=== PATIENT | female | born 1955 | race Caucasian/White ===

== ENCOUNTER 2017-01-13 14:26 | Emergency (ER) | payer OTHER ==
--- NOTE | ~2017-01-13 | CT16 ---
[facility] A Service of [facility] RADIOLOGY TEXT RESULTS PATIENT: TAURUS TEJADA LOCATION: SED : 53 UNIT #: [id number] AGE: [address]: Giovanni Ashton MD SEX: F ORDER DR: [id number] [place] [id number] E MR#: [id number] Acc #: [id number] NAME: TAURUS TEJADA. : 1955 SEX: F STUDY DATE/TIME: 01/13/2017 13:42 UNIT: SED ROOM: STUDY DESCRIPTION: CT Angio Chest for PE Attending Physician: Giovanni Ashton M.D. Ordering Physician: Giovanni Ashton M.D. Primary Care Physician: Primary Care Physician No MEDICAL IMAGING REPORT This report is preliminary unless electronic signature is present. EXAM CTA chest PE protocol INDICATION Shortness of air since this morning. History of previous pulmonary embolus. PROCEDURE Contrast-enhanced CTA of the chest with attention on opacification of pulmonary arteries. Coronal 3-D MIP and sagittal reformatted images reconstructed and submitted. 80 mL of Isovue-370. COMPARISON 06/04/[address] exam was performed with one or more of the following radiation dose reduction techniques: automatic exposure control, adjustment of mA and/or kV according to patient size, and iterative reconstruction. FINDINGS There is large acute pulmonary embolus burden extending to all lobes both on the right and the left. There is no saddle component. No evidence for right heart strain. No adenopathy. Cholelithiasis. Possible hepatic steatosis. No aggressive appearing bone lesion. IMPRESSION 1. Bilateral acute pulmonary embolus extending to all lobes. No saddle component or significant component of right heart strain. 2. Not mentioned above, the lungs are clear. 1. Dictated by... [facility] A Service [facility] RADIOLOGY TEXT RESULTS PATIENT: TAURUS TEJADA LOCATION: SED : 53 UNIT #: [id number] AGE: [address]: Giovanni Ashton MD SEX: F ORDER DR: Oswald Cortez M.D. THIS IS AN ELECTRONICALLY VERIFIED REPORT Oswald Cortez M.D. at 01/13/2017 4:51 PM Katarina TD: 01/13/2017 14:55 JOB #: [id number] MEDICAL IMAGING REPORT Page 1 of 1
[2017-01-13 13:21] LABS: BASOPHIL# 0.1 X10e3 (0-0.3); BASOPHIL% 0.8 % (0-2.5); EOSINOPHIL# 0.5 X10e3 (0-0.7); EOSINOPHIL% 6.9 % (0.0-7.0); HEMATOCRIT 39.9 % (35.0-45.0); HEMOGLOBIN 13.4 gm/dL (12.0-16.0); LYMPHOCYTE# 2.6 X10e3 (1.0-3.5); LYMPHOCYTE% 35.6 % (17.0-45.0); MEAN CELL VOLUME 89.7 FL (83-96); MEAN CORPUSCULAR HEMOGLOBIN 30.1 PG (28-34); MEAN CORPUSCULAR HGB CONC 33.5 g/dL (30-36); MEAN PLATELET VOLUME 7.5 FL (6.5-11.5); MONOCYTE# 0.6 X10e3 (0-1.0); MONOCYTE% 7.5 % (3.0-12.0); NEUTROPHIL# 3.6 X10e3 (1.5-7.1); NEUTROPHIL% 49.2 % (40-75); PLATELET COUNT 206 X10e3 (140-420); RED BLOOD COUNT 4.45 X10e (3.90-5.30); RED CELL DISTRIBUTION WIDTH 13.6 % (11.0-15.5); WHITE BLOOD COUNT 7.3 X10e3 (4.0-10.5)
[2017-01-13 13:24] LABS: DIFF IND NO
[2017-01-13 13:35] LABS: POC - CREATININE 0.71 mg/dL (0.44-1.03); POC - GFR >60.0 mL/min (>60)
[2017-01-13 13:41] LABS: POC - TROPONIN <0.05 ng/mL (<=0.05)
[2017-01-13 13:43] LABS: PROTHROMBIN TIME (PATIENT) 11.8 SECONDS (9.5-12.4)
[2017-01-13 13:51] LABS: ALBUMIN SERUM 4.2 g/dL (3.5-5.0); BILIRUBIN,TOTAL 0.7 mg/dL (0.2-2.0); CALCIUM SERUM 9.6 mg/dL (8.4-10.2); GLOM FILT RATE Estimated 60.4 mL/min (>60); POTASSIUM 3.3 mmol/L (3.5-5.1); PROTEIN TOTAL SERUM 7.4 g/dL (6.0-8.3)
[~2017-01-13 14:26] MED LIST: AMBIEN10 MG PO; ASPIRIN PO; ATARAX PO; AUGMENTIN; CALCIUM WITH VITD; CELEXA PO; CELEXA20 MG PO; COUMADIN; CRESTOR; CRESTOR PO; CRESTOR10 MG PO; DARVOCET-N 1001 TAB; DICLOFENAC PO; DURAGESIC75 MCG EXT; FLEXERIL; FLEXERIL10 MG PO; HCTZ; HYDROCODON-ACE1 EAC7 PO; HYDROCODONE-APA1 T54 PO; KEFLEX250 M2 PO; LAXATIVE; LISINOPRIL10 MG PO; LISINOPRIL20 MG PO; MORPHINE PAIN PUMP; MORPHINE PAIN PUMP INJ; NORCO1 TAB 10/3 PO; OXYCODONE HCL10 MG PO; OXYCODONE HCL5 MG PO; PRINIVIL10 MG PO; STOOL SOFTENER1 EAC1 PO; STOOL SOFTNER; TEGRETOL PO; TRAZODONE; VIIBRYD20 MG PO; VIIBRYD40 MG PO; VITAMIN D-32000 UNI1 PO; ZESTRIL10 M2 PO; ZOLOFT; [UNRECOGNIZED DRUG - REMARK]
[2017-01-13 20:14] LABS: INR 1.2; PROTHROMBIN TIME (PATIENT) 13.4 SECONDS (9.5-12.4)
[2017-01-13 20:22] LABS: PARTIAL THROMBOPLASTIN TIME 90.4 SECONDS (25.6-38.1)
[2017-02-01] MEDS ORDERED: BELSOMRA10 MG PO (13:47)
[2017-02-01] MEDS ORDERED: HYDROCODON-ACE1 EAC7 PO (13:51)
[2017-02-01] MEDS ORDERED: WOMENS STOOL S100 MG PO (13:53)
[2017-02-01] MEDS ORDERED: FLEXERIL10 MG PO (13:55)
[2017-02-01] MEDS ORDERED: ZESTRIL40 MG PO (13:56)
[2017-02-01] MEDS ORDERED: VIIBRYD40 MG PO (13:58)
[2017-02-01] MEDS ORDERED: ALPRAZOLAM PO (13:59)
[2017-02-01] MEDS ORDERED: ELIQUIS5 MG PO (14:00)
[2017-02-01] MEDS ORDERED: VESICARE PO (14:00)
[2017-02-01] MEDS ORDERED: LIPO-FLAVONOID PO (14:01)
[2017-03-21] MEDS ORDERED: LO-DOSE ASPIRIN81 M1 PO (10:02)
[2017-06-20] MEDS ORDERED: HYDROCODON-ACE1 EAC7 PO (08:48)
[2017-06-20] MEDS ORDERED: MILK OF MAGNESIA (08:52)
== END 2017-01-13 20:35 | disposition hospice, home (50) ==
LOC: SED 14:26
PROVIDERS: Emergency Medicine
DX: I26.99 Other pulmonary embolism without acute cor pulmonale (principal); J96.90 Respiratory failure, unspecified, unspecified whether with hypoxia or hypercapnia; E78.5 Hyperlipidemia, unspecified; I10 Essential (primary) hypertension; J44.9 Chronic obstructive pulmonary disease, unspecified; Z87.891 Personal history of nicotine dependence
CPT/HCPCS: 36415; 71275; 80053; 82553; 82565; 83874; 83880; 84484; 85025; 85610; 85730; 93005; 94640; 96361; 96372; 96374; 99291; J1644; J1650; J2060; Q9967

== ENCOUNTER → 2017-02-02 | Day surgery (SDC) | payer OTHER ==
[~2017-02-02] MED LIST changes: +ALPRAZOLAM PO; +BELSOMRA10 MG PO; +ELIQUIS5 MG PO; +LIPO-FLAVONOID PO; +LO-DOSE ASPIRIN81 M1 PO; +MILK OF MAGNESIA; +VESICARE PO; +WOMENS STOOL S100 MG PO; +ZESTRIL40 MG PO
--- NOTE | ~2017-02-02 | OR ---
Unit #: [id number] #: [id number] Patient: TAURUS TEJADA [id number] [address] [place], [place] [address] [id number] O MR#: [id number] NAME: TAURUS TEJADA ROOM: Date of Procedure: 02/02/2017 Admission Date: 02/02/2017 Surgeon: Simon العراقي M.D. : 1955 Attending Physician: Simon العراقي M.D. Referring Physician: Simon العراقي M.D. Primary Care Physician: Ck Kinney M.D. OPERATIVE REPORT PREOPERATIVE DIAGNOSES Lumbar disk herniation, lumbar fusion, back pain, radiculopathy. POSTOPERATIVE DIAGNOSES Lumbar disk herniation, lumbar fusion, back pain, radiculopathy. PROCEDURE PERFORMED Lumbar epidural steroid injection with intravenous sedation and fluoroscopic guidance for needle localization. INDICATIONS FOR PROCEDURE The patient is a 61-year-old female with significant worsening back and right lower extremity pain after some lifting. The patient has fused from L3 through L4. She has right-sided disk herniations on workup at the right L1-L2 and L2-L3 levels causing nerve root impingement. She was not able to do therapy due to the amount of the pain she was having. Plan is a trial of epidural steroids trying to settle down these levels with nerve root irritation. DESCRIPTION OF PROCEDURE The patient was placed in a seated position. Standard monitors were applied. 2 mg of Versed were given for sedation and anxiolysis, which were adequate. Vital signs remained stable. Sterile prep and drape then of the lumbar area was performed. The skin then at the L1-L2 level was localized with 1% lidocaine. An 18-gauge Wheretogettead needle was then advanced via loss of resistance technique and fluoroscopic guidance in toward the epidural space. The patient did not complain of pain or paresthesia during needle advancement. After confirming proper positioning with fluoroscopy and radiographic contrast, 80 mg of Depo-Medrol and 4 mL of 0.125% bupivacaine were deposited. The patient tolerated the procedure otherwise well and was discharged to the recovery room in stable condition. Dictated by... Lambert Stearns/mukul TD: 02/03/2017 00:15 JOB #: [id number] Unit #: [id number] #: [id number] Patient: TAURUS TEJADA OPERATIVE REPORT Page 1 of 1 X Simon العراقي MD X PROCEDURE OPERATIVE NOTE
== END | disposition home or self-care (01) ==
LOC: CCSC 09:45
DX: M51.16 Intervertebral disc disorders with radiculopathy, lumbar region (principal); Z98.1 Arthrodesis status
CPT/HCPCS: J1040; J2250

== ENCOUNTER → 2017-03-21 | Day surgery (SDC) | payer OTHER ==
--- NOTE | ~2017-03-21 | OR ---
Unit #: [id number] #: [id number] Patient: TAURUS TEJADA [id number] [address] [place], [place] [address] [id number] O MR#: [id number] NAME: TAURUS TEJADA. ROOM: Date of Procedure: 03/21/2017 Admission Date: 03/21/2017 Surgeon: Simon العراقي M.D. : 1955 Attending Physician: Simon العراقي M.D. Primary Care Physician: Ck Kinney M.D. OPERATIVE REPORT PREOPERATIVE DIAGNOSES Herniated nucleus pulposus, radiculopathy, postlumbar fusion. POSTOPERATIVE DIAGNOSES Herniated nucleus pulposus, radiculopathy, postlumbar fusion. PROCEDURE PERFORMED Transforaminal epidural steroid injection x2 levels with intravenous sedation and fluoroscopic guidance for needle localization. INDICATIONS FOR PROCEDURE The patient is a 61-year-old female, status post L3 through L5 fusion with worsening right lower extremity and back pain following lifting. The patient did not settle with conservative management. Trial of translaminar epidural did not give her significant improvement. Repeat workup demonstrated a new right L1-L2 disk with right L1 nerve root impingement. At the L2-L3 level, there was also a right-sided bulge contacting the L2 and L3 nerve roots. Based on her pathology, symptomatology, and failed to respond to translaminar injection, plan is for trial of transforaminal to the right at these 2 levels. Risks and benefits of all have been reviewed. DESCRIPTION OF PROCEDURE The patient was placed in a prone position. Standard monitors were applied. 2 mg of Versed were given for sedation and anxiolysis, which were adequate. Vital signs remained stable. Sterile prep and drape then of the thoracolumbar area was performed. The skin then to the right of midline at the L1-L2 and L2-L3 level was localized with 1% lidocaine. At each of these levels, a long 22-gauge Quincke point spinal needle was advanced with biplanar fluoroscopy to bring the needle tip within the edge of the respective L1-L2 and L2-L3 neural foramina. At both of these levels, the patient had a paresthesia, which quickly abated upon slightly retracting the needle. After confirming proper positioning with biplanar fluoroscopy and radiographic contrast, a dose of 1.5 mL of a mixture of 80 mg Depo-Medrol and 2 mL of 0.25% bupivacaine were deposited at each of the neural foramina. The patient had mild reproduction of pain during the injection. She otherwise tolerated the procedure well and was discharged to recovery room in stable condition. She will be reassessed at the office. Unit #: [id number] #: [id number] Patient: TAURUS TEJADA Dictated by... Lambert Stearns/mukul TD: 03/21/2017 23:10 JOB #: [id number] CC: Socallie/invision Please Delete OPERATIVE REPORT Page 1 of 1 X Simon العراقي MD X PROCEDURE OPERATIVE NOTE
== END | disposition home or self-care (01) ==
LOC: CCSC 09:12
DX: M51.16 Intervertebral disc disorders with radiculopathy, lumbar region (principal); Z88.6 Allergy status to analgesic agent; Z88.8 Allergy status to other drugs, medicaments and biological substances; Z79.01 Long term (current) use of anticoagulants; Z79.891 Long term (current) use of opiate analgesic; Z79.899 Other long term (current) drug therapy; Z98.1 Arthrodesis status
CPT/HCPCS: J1040; J2250

== ENCOUNTER 2017-05-23 23:43 | Emergency (ER) | payer OTHER ==
[~2017-05-23] VITALS: Ht 162.6 cm; Wt 92.5 kg
[~2017-05-23 23:43] MED LIST changes: -MILK OF MAGNESIA
[2017-06-20] MEDS ORDERED: HYDROCODON-ACE1 EAC7 PO (08:48)
[2017-06-20] MEDS ORDERED: MILK OF MAGNESIA (08:52)
== END 2017-05-24 01:37 | disposition home or self-care (01) ==
LOC: SED 23:43
DX: I87.8 Other specified disorders of veins (principal); K08.89 Other specified disorders of teeth and supporting structures; E78.5 Hyperlipidemia, unspecified; I10 Essential (primary) hypertension; Z88.5 Allergy status to narcotic agent; Z88.8 Allergy status to other drugs, medicaments and biological substances; Z79.899 Other long term (current) drug therapy
CPT/HCPCS: 99282

== ENCOUNTER 2017-06-21 01:58 | Emergency (ER) | payer OTHER ==
[~2017-06-21] VITALS: Ht 161.3 cm; Wt 92.5 kg
--- NOTE | ~2017-06-21 | CR63 ---
[facility] A Service of [facility] RADIOLOGY TEXT RESULTS PATIENT: TAURUS TEJADA LOCATION: [facility] : 53 UNIT #: [id number] AGE: [address]: Clifford Grossman MD SEX: F ORDER DR: [id number] [facility] [address] [place], [place] [address] [id number] E MR#: [id number] Acc #: [id number] NAME: TAURUS TEJADA : 1955 SEX: F STUDY DATE/TIME: 06/21/2017 3:04 UNIT: [facility] ROOM: STUDY DESCRIPTION: CR Chest 2 View Attending Physician: Clifford Grossman M.D. Ordering Physician: Richie Lu D.O. Primary Care Physician: Ck Kinney M.D. MEDICAL IMAGING REPORT This report is preliminary unless electronic signature is present EXAM Two-view chest INDICATION Chest and bilateral arm and shoulder pain today. PROCEDURE Frontal and lateral views of the chest. COMPARISON 09/03/2014 FINDINGS Heart size normal. Lungs clear. No pleural fluid or pneumothorax. IMPRESSION No active process. Dictated by... Oswald Cortez M.D. THIS IS AN ELECTRONICALLY VERIFIED REPORT Oswald Cortez M.D. at 06/22/2017 9:56 PM DARREN/brant TD: 06/21/2017 11:09 JOB #: [id number] MEDICAL IMAGING REPORT Page 1 of 1 COPY
--- NOTE | ~2017-06-21 | US139 ---
[facility] A Service of [facility] RADIOLOGY TEXT RESULTS PATIENT: TAURUS TEJADA LOCATION: [facility] : 53 UNIT #: [id number] AGE: [address]: Clifford Grossman MD SEX: F ORDER DR: [id number] [facility] [address] [place], [place] [address] [id number] E MR#: [id number] Acc #: [id number] NAME: TAURUS TEJADA. : 1955 SEX: F STUDY DATE/TIME: 06/21/2017 7:27 UNIT: [facility] ROOM: STUDY DESCRIPTION: US UE Veins Complete Eric Stdy Attending Physician: Clifford Grossman M.D. Ordering Physician: Richie Lu D.O. Primary Care Physician: Ck Kinney M.D. MEDICAL IMAGING REPORT This report is preliminary unless electronic signature is present EXAM Bilateral upper extremity venous duplex 06/21/2017 HISTORY Bilateral upper extremity pain for 2 days and history of previous DVT December 2016. FINDINGS Ludwig-scale images of the upper extremities were obtained as well as Doppler waveform, spectral analysis, and color flow Doppler imaging. There is normal blood flow and compressibility in the bilateral internal jugular veins as well as the bilateral subclavian, axillary, brachial and basilic veins as well as the right cephalic vein. There is occlusive thrombus in the mid left cephalic vein characteristic of superficial thrombophlebitis. IMPRESSION 1. No evidence of deep vein thrombosis within the lower extremities bilaterally. 2. Occlusive thrombus mid left cephalic vein characteristic of superficial thrombophlebitis. Dictated by... Jovany Coleman M.D. THIS IS AN ELECTRONICALLY VERIFIED REPORT Jovany Coleman M.D. at 06/23/2017 7:45 AM ANTOINETTE/brant TD: 06/21/2017 14:01 JOB #: [id number] [facility] A Service of [facility] RADIOLOGY TEXT RESULTS PATIENT: TAURUS TEJADA [id number] 53 UNIT #: [id number] AGE: [address]: Clifford Grossman MD SEX: F ORDER DR: MEDICAL IMAGING REPORT Page 1 of 1 COPY
[~2017-06-21 01:58] MED LIST changes: +MILK OF MAGNESIA
[2017-06-21 03:32] LABS: BASOPHIL# 0.1 X10e3 (0-0.3); BASOPHIL% 0.8 % (0-2.5); EOSINOPHIL% 0.5 % (0.0-7.0); HEMATOCRIT 37.3 % (35.0-45.0); HEMOGLOBIN 12.8 gm/dL (12.0-16.0); LYMPHOCYTE# 2.4 X10e3 (1.0-3.5); LYMPHOCYTE% 25.5 % (17.0-45.0); MEAN CELL VOLUME 88.3 FL (83-96); MEAN CORPUSCULAR HEMOGLOBIN 30.2 PG (28-34); MEAN CORPUSCULAR HGB CONC 34.2 g/dL (30-36); MEAN PLATELET VOLUME 8.7 FL (6.5-11.5); MONOCYTE# 0.8 X10e3 (0-1.0); MONOCYTE% 8.8 % (3.0-12.0); NEUTROPHIL# 6.1 X10e3 (1.5-7.1); NEUTROPHIL% 64.4 % (40-75); PLATELET COUNT 238 X10e3 (140-420); RED BLOOD COUNT 4.23 X10e (3.90-5.30); RED CELL DISTRIBUTION WIDTH 13.1 % (11.0-15.5); WHITE BLOOD COUNT 9.5 X10e3 (4.0-10.5)
[2017-06-21 03:33] LABS: DIFF IND NO
[2017-06-21 03:57] LABS: ALBUMIN SERUM 4.1 g/dL (3.5-5.0); BILIRUBIN, DIRECT 0.3 mg/dL (0.0-0.2); BILIRUBIN,INDIRECT 0.5 mg/dL (0.0-0.9); BILIRUBIN,TOTAL 0.8 mg/dL (0.2-2.0); CALCIUM SERUM 8.8 mg/dL (8.4-10.2); GLOM FILT RATE Estimated 60.4 mL/min (>60); POTASSIUM 3.1 mmol/L (3.5-5.1); PROTEIN TOTAL SERUM 7.3 g/dL (6.0-8.3)
[2017-06-21 04:53] LABS: URINE SOURCE CLEAN CATCH
[2017-06-21 04:57] LABS: URINE APPEARANCE CLEAR; URINE BILIRUBIN NEG (NEG); URINE BLOOD TRACE (NEG); URINE COLOR YELLOW; URINE GLUCOSE 500 MG/DL (NEG); URINE KETONE 3+ (NEG); URINE LEUKOCYTE ESTERASE NEG (NEG); URINE NITRATE NEG (NEG); URINE PH 6.5 (5-8); URINE PROTEIN 1+ (NEG); URINE SPECIFIC GRAVITY 1.019 (1.003-1.035)
[2017-06-21 04:59] LABS: CULTURE INDICATED? NO; URINE BACTERIA AUWI NEG (NEGATIVE); URINE SQUAMOUS EPITHELIAL CELL OCC /[HPF]; UWBCS1 AUWI 0-2 (0-5)
== END 2017-06-21 08:45 | disposition home or self-care (01) ==
LOC: CED 01:58
PROVIDERS: Emergency Medicine
DX: I80.8 Phlebitis and thrombophlebitis of other sites (principal); Z86.718 Personal history of other venous thrombosis and embolism; Z86.711 Personal history of pulmonary embolism; Z98.890 Other specified postprocedural states; Z98.51 Tubal ligation status; F32.9 Major depressive disorder, single episode, unspecified; Z88.8 Allergy status to other drugs, medicaments and biological substances
CPT/HCPCS: 36415; 71020; 80048; 80076; 81003; 83690; 85025; 93970; 96374; 96375; 99284; J1170; J1885; J2405

== ENCOUNTER 2017-06-22 01:04 | Emergency (ER) | payer OTHER ==
[~2017-06-22] VITALS: Ht 160 cm; Wt 88.9 kg
== END 2017-06-22 03:26 | disposition home or self-care (01) ==
LOC: SED 01:04
DX: Z53.21 Procedure and treatment not carried out due to patient leaving prior to being seen by health care provider (principal)